=== PATIENT | female | born 1985 | race Two or more races ===

== ENCOUNTER 2018-11-07 12:04 | Emergency (ER) | payer MEDICAID ==
[~2018-11-07] VITALS: Ht 182.9 cm; Wt 129.3 kg
[2018-11-07 12:39] VITALS: BP 115/65
[2018-11-07] MEDS ORDERED: ASPirin 81 mg TAB PO ONE (12:45)
[2018-11-07 12:58] LABS: Eosinophils # (auto) 0 uL; Eosinophils % (auto) 0.6 % (0.0-7.0); Hematocrit 34.6 % (36.0-46.0); Hemoglobin 10.8 g/dL (12.2-16.2); Mean Corpuscular Hemoglobin 25.2 pg (28.0-32.0); Monocytes # (auto) 0.4 uL
[2018-11-07 13:00] LABS: Basophils # (auto) 0.1 uL; Lymphocytes # (auto) 1.9 uL; Lymphocytes % (auto) 27.6 % (10.0-50.0); Mean Corpuscular Hgb Conc. 31.3 g/dL (32.0-36.0); Mean Corpuscular Volume 80.4 fL (80.0-100.0); Monocytes % (auto) 5.9 % (0.0-12.0); Neutrophils # (auto) 4.4 uL; Neutrophils % (auto) 64.9 % (37.0-80.0); Platelet Count (auto) 154 10^3/uL (140-450); White Blood Cell 6.8 10^3/uL (4.4-10.8)
[2018-11-07 13:03] LABS: Red Cell Distribution Width 20.7 % (11.8-14.3)
[2018-11-07 13:27] LABS: Chloride 110 mmol/L (98-107); Sodium 140 mmol/L (136-145)
[2018-11-07 13:31] LABS: Albumin 3.8 g/dL (3.4-5.0); Anion Gap 7 (5-15); Blood Urea Nitrogen 9 mg/dL (7-18); Calcium 8.7 mg/dL (8.5-10.1); Carbon Dioxide 23 mmol/L (21-32); Glucose 91 mg/dL (74-106)
[2018-11-07 13:34] LABS: Alanine Aminotransferase 20 U/L (13-56); Aspartate Aminotransferase 15 U/L (15-37); BUN/Creatinine Ratio 11.3; GFR African American 106 mL/min; GFR Non-African American 87 mL/min
[2018-11-07 13:37] LABS: Alkaline Phosphatase 129 U/L (45-117); Bilirubin, Total 0.3 mg/dL (0.2-1.0); Total Protein 8.4 g/dL (6.4-8.2)
[2018-11-07 13:48] LABS: Urine Bacteria NONE SEEN /hpf (None Seen); Urine Blood Negative /uL (Negative); Urine Specific Gravity 1.022 (1.001-1.035); Urine WBC 1 /hpf (0 - 5)
== END 2018-11-07 14:57 | disposition home or self-care (01) ==
LOC: ER 12:09
DX: R07.89 Other chest pain (principal); Z88.1 Allergy status to other antibiotic agents; Z88.8 Allergy status to other drugs, medicaments and biological substances
CPT/HCPCS: 36415; 80053; 81001; 84484; 85025; 93005